=== PATIENT | male | born 2000 | race Caucasian/White ===

== ENCOUNTER 2020-10-01 07:11 | Emergency (ER) | payer OTHER ==
[~2020-10-01] VITALS: Ht 182.9 cm; Wt 70.3 kg
[2020-10-01 07:54] LABS: URINE BILIRUBIN NEGATIVE (Negative); URINE BLOOD NEGATIVE (Negative); URINE CLARITY CLEAR; URINE COLOR YELLOW; URINE GLUCOSE-RANDOM* NEGATIVE (Negative); URINE KETONES 1+ (Negative); URINE LEUKOCYTES-REFLEX NEGATIVE (Negative); URINE NITRITE-REFLEX NEGATIVE (Negative); URINE PROTEIN (DIPSTICK) TRACE (Negative); URINE SPECIFIC GRAVITY >= 1.030 (1.005-1.035); URINE UROBILINOGEN 0.2 E.U./dl (0.2-1.0)
[2020-10-01 08:11] LABS: ABSOLUTE NEUTROPHILS 14.8 thou/uL (1.4-8.2); BASOPHILS 0.3 % (0.0-2.0); EOSINOPHILS 0.1 % (0.0-3.0); HEMATOCRIT 41.2 % (42.0-52.0); HEMOGLOBIN 13.8 gm/dL (14.0-18.0); LYMPHOCYTES 5.8 % (24.0-44.0); MCH 28.1 pg (26.0-34.0); MCHC 33.4 g/dL (28.0-37.0); MCV 84.2 fL (80.0-100.0); PLATELET COUNT 232 thou/uL (150-400); POLYS 84.8 % (36.0-66.0); RDW 13.2 % (10.5-14.5); WBC 17.4 thou/uL (4.0-11.0)
[2020-10-01 08:22] LABS: CALCIUM 9.8 mg/dL (8.5-10.1); CREATININE 0.9 mg/dL (0.7-1.3); POTASSIUM 3.3 mmol/L (3.5-5.1)
[2020-10-01 08:29] LABS: ALBUMIN 3.8 g/dL (3.4-5.0); DIRECT BILIRUBIN 0.2 mg/dL (<0.1-0.2); TOTAL BILIRUBIN 0.9 mg/dL (0.2-1.0); TOTAL PROTEIN 7.2 g/dL (6.4-8.2)
[2020-10-01] MEDS ORDERED: ZPAK PO (09:43)
[2020-10-01 09:57] VITALS: BP 114/60
--- NOTE | 2020-10-02 12:31 | EKG ---
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: [place] : 2000 Requested By: Azul Posadas Order Number: [id number] MD: Minesh Alvarez Measurements Intervals [place] Rate: 124 P: 73 MA: 126 QRS: 91 QRSD: 92 T: -64 QT: 279 QTc: 401 Interpretive Statements Sinus tachycardia Borderline right axis deviation Nonspecific ST and T wave abnormality Baseline wander in lead(s) V2,V4,V5 No previous ECG available for comparison Electronically Signed On 10-02-2020 12:31:07 COMMISSIONS COORDINATOR by Minesh Alvarez [email or web address] <ELECTRONICALLY SIGNED> By: Minesh Alvarez MD, [facility] 10/02/20 1231 D: 01/718 8 Minesh Alvarez MD, FACC /EPI
== END 2020-10-01 10:38 | disposition home or self-care (01) ==
LOC: ER 07:11
PROVIDERS: Emergency Medicine
DX: J18.9 Pneumonia, unspecified organism (principal)